=== PATIENT | male | born 1975 | race Native Hawaiian/Other Pacific Islander ===

== ENCOUNTER 2018-11-05 09:02 | Emergency (ER) | payer SELFPAY ==
[~2018-11-05] VITALS: Ht 177.8 cm; Wt 109.1 kg
[2018-11-05 10:45] VITALS: BP 129/68
== END 2018-11-05 11:00 | disposition home or self-care (01) ==
LOC: EMS 09:04
DX: N48.89 Other specified disorders of penis (principal); F17.210 Nicotine dependence, cigarettes, uncomplicated; F12.10 Cannabis abuse, uncomplicated; F15.10 Other stimulant abuse, uncomplicated